=== PATIENT | male | born 1970 | race Caucasian/White ===

== ENCOUNTER → 2017-06-20 | Outpatient (CLI) | payer OTHER ==
[2017-06-20 11:00] LABS: CHOLESTEROL/HDL RATIO 5.1
== END | disposition home or self-care (01) ==
LOC: C.LAB 09:19
PROVIDERS: ATTEND Physician Assistant
DX: Z00.00 Encounter for general adult medical examination without abnormal findings (principal)

== ENCOUNTER 2021-11-30 17:28 | Observation (INO) ==
--- NOTE | 2021-11-30 18:09 | Emergency Department Note ---
History of Present Illness General Chief complaint: Shortness of Breath/Dyspnea Stated complaint: SOB, POST COVID 11/14 Time Seen by Provider: 11/30/21 17:46 Source: patient Mode of arrival: ambulatory Limitations: no limitations History of Present Illness This patient is a 50-year-old male who comes in after having shortness of breath. He started having symptoms with a head cold on November 13. He tested positive at home on the and a positive PCR on the . He started having shortness of breath on Monday the into Monday he felt very short of breath overnight and had impending doom at the time he saw his PCP on Monday the had a negative D-dimer and a normal chest x-ray they started him on a Z-Sherwin which she finished and he is also on a 9-day course of steroid taper which he is on day 8 of. He felt like he was having some sore throat and they started him on cefdinir yesterday which has had before without any problems and no rash he says his throat feels better he is. He says he feels like he just cannot get a deep breath. No pain with breathing denies chest pain. he has had some ongoing epigastric pain for a month that he has been on Protonix and Pepcid Pepcid that has been getting better. Denies any nausea or vomiting. No lower extremity pain or swelling. no rash. Home Medications Medication Instructions Recorded Confirmed Type cefdinir 300 mg capsule 300 mg PO BID 11/30/21 11/30/21 History etanercept 50 mg/mL (1 mL) 50 mg SUBCUT WK 11/30/21 11/30/21 History subcutaneous pen injector (Enbrel SureClick) pantoprazole 40 mg tablet,delayed 40 mg PO DAILY 11/30/21 11/30/21 History release prednisone 20 mg tablet 20 mg PO UD 11/30/21 11/30/21 History simvastatin 20 mg tablet 20 mg PO HS 11/30/21 11/30/21 History Allergies Allergy/AdvReac Type Severity Reaction Status Date / Time shellfish derived Allergy Severe Anaphylaxis Verified 11/30/21 17:47 Past Med/Surg History Social History Smoking Status: Never smoker Hx Alcohol Use: Yes Alcohol type: beer Hx Substance Use: No Preferred Language: Chadian Person Investigator Required: No Beliefs That Will Affect Care: None Current Living Situation: Family Feels Safe at Home: Yes Assistive Devices: None and Glasses Immunizations: Past medical historypsoriatic arthritis. Increased cholesterol. Denies history of cardiac disease, pulmonary disease, blood clotting disorder, diabetes. 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 Family historymother had valvular heart disease. Father did have an angioplasty. Social history he works here at the hospital. Does not smoke. He did receive both the Covid vaccine and booster Review of Systems A total of 10 systems reviewed and were otherwise negative Physical Exam Vital Signs Vital Signs - 24 hr 11/30/21 17:29 11/30/21 17:40 11/30/21 18:11 Temperature 36.8 C Temperature Source Temporal Artery Scan Oral Pulse Rate 87 Pulse Rate [Apical] Pulse Rate from SpO2 Sensor Pulse Rhythm Regular Respiratory Rate 28 H Respiratory Effort / Characteristics Short of Breath Short of Breath Respiratory Depth Deep Respiratory Pattern Regular Blood Pressure 196/114 H Blood Pressure [Right Arm] Blood Pressure Mean 141 Blood Pressure Mean [Right Arm] Pulse Oximetry 98 100 Oxygen Delivery Method Room Air Room Air Room Air Sepsis Recent Fever Within 48 Hours No Sepsis New/Unexplained Change in Mental Status No Sepsis Action Taken by Nursing No Action Required 11/30/21 19:09 11/30/21 20:00 Temperature Temperature Source Pulse Rate 75 Pulse Rate [Apical] 70 Pulse Rate from SpO2 Sensor 75 Pulse Rhythm Respiratory Rate 24 Respiratory Effort / Characteristics Respiratory Depth Respiratory Pattern Blood Pressure 172/103 H Blood Pressure [Right Arm] 160/119 H Blood Pressure Mean 126 Blood Pressure Mean [Right Arm] 132 Pulse Oximetry 99 100 Oxygen Delivery Method Room Air Room Air Sepsis Recent Fever Within 48 Hours Sepsis New/Unexplained Change in Mental Status Sepsis Action Taken by Nursing General: Well developed well nourished middle-age male who appears mildly t achypneic at times but otherwise in no acute distress, breathing comfortably on room air. Normal speech. On the pulse ox he is 100% HEENT: Normal cephalic atraumatic. Pupils are equal round and reactive to light. Extraocular movements are intact. Oropharynx is pink with moist mucous membranes. No swelling of the mouth lips or tongue. Neck: Supple with a midline trachea. No meningeal signs or stiffness, no JVD or bruits. No Stridor. Chest: Clear to auscultation bilaterally. No wheezes or rhonchi. No increased work of breathing. Heart: Regular rate and rhythm without murmurs or gallops. Abdomen: Soft nontender, nondistended without rebound guarding or rigidity. Extremities: No cyanosis clubbing or edema. No calf tenderness or assymetry Spine/Back. Non tender to palpation. No CVA tenderness Skin: Good turgor without rashes. Neurologic exam: Cranial nerves two through 12 are intact. Motor and sensation are intact and symmetrical throughout. Course Administered Medications Discontinued Medications Dexamethasone 6 mg/ Syringe 1.5 mls @ 1 mls/min IV ONE ONE Stop: 11/30/21 21:01 Last Admin: 11/30/21 21:17 Dose: 1 mls/min Documented by: [id number] Medical Decision Making Differential Diagnosis Covid, pneumonia, cardiac disease, PE, hypoxemia, infection, allergic reaction, post Covid complication, pneumothorax Medical Records Attestation: I reviewed the patient's medical records. Home Medications Current Medication List: was personally reviewed by me Laboratory Data Attestation: I reviewed the patient's lab results. Result diagrams: 11/30/21 18:05 11/30/21 18:05 Lab Results 11/30/21 11/30/21 11/30/21 Range/Units 18:05 18:05 18:05 WBC 10.22 (4.8-10.8) K/uL RBC 5.30 (4.7-6.1) M/uL Hgb 16.1 (14.0-18.0) g/dL Hct 46.8 (42-52) % MCV 88.3 (80-100) fL MCH 30.4 (25-34) pg MCHC 34.4 (32-36) g/dL RDW Std Deviation 41.8 (36.4-46.3) fL RDW Coeff of Sam 12.9 (11.5-14.5) % Plt Count 359 (130-400) K/uL MPV 10.6 H (7.4-10.4) fL Immature Gran % (Auto) 0.4 % Neut % (Auto) 72.8 % Lymph % (Auto) 20.3 % [place] % (Auto) 6.0 % Eos % (Auto) 0.3 % Baso % (Auto) 0.2 % Neut # (Auto) 7.45 H (1.4-6.5) K/uL Lymph # (Auto) 2.07 (1.2-3.4) K/uL [place] # (Auto) 0.61 H (0.11-0.59) K/uL Eos # (Auto) 0.03 (0-0.5) K/uL Baso # (Auto) 0.02 (0-0.2) K/uL Immature Gran # (Auto) 0.04 H (0.00-0.02) K/uL PT 9.4 (9.0-12.0) Seconds INR 0.9 (0.9-1.1) APTT 24.9 (21.0-31.0) Seconds PTT Ratio 0.9 D-Dimer Cancelled 230 Sodium (136-145) mmol/L Potassium (3.5-5.1) mmol/L Chloride (98-107) mmol/L Carbon Dioxide (21-32) mmol/L Anion Gap (3-11) BUN (6-23) mg/dl Creatinine (0.6-1.4) mg/dl Est Cr Clr Drug Dosing ml/min Est GFR ( Amer) ml/min Est GFR (Non-Af Amer) ml/min BUN/Creatinine Ratio (10-20) Glucose (70-99(Fasting)) mg/dl Calcium (8.5-10.1) mg/dl Total Bilirubin (0.2-1.0) mg/dl AST (13-39) U/L ALT (7-52) U/L Alkaline Phosphatase (34-104) U/L Troponin I (0-0.04) ng/ml B-Natriuretic Peptide (0-100) pg/ml Total Protein (6.0-8.3) gm/dl Albumin (3.4-5.0) gm/dl Globulin (2.5-4.0) gm/dl Albumin/Globulin Ratio (0.9-2) Lipase (11-82) U/L 11/30/21 11/30/21 Range/Units 18:05 18:32 WBC (4.8-10.8) K/uL RBC (4.7-6.1) M/uL Hgb (14.0-18.0) g/dL Hct (42-52) % MCV (80-100) fL MCH (25-34) pg MCHC (32-36) g/dL RDW Std Deviation (36.4-46.3) fL RDW Coeff of Sam (11.5-14.5) % Plt Count (130-400) K/uL MPV (7.4-10.4) fL Immature Gran % (Auto) % Neut % (Auto) % Lymph % (Auto) % [place] % (Auto) % Eos % (Auto) % Baso % (Auto) % Neut # (Auto) (1.4-6.5) K/uL Lymph # (Auto) (1.2-3.4) K/uL [place] # (Auto) (0.11-0.59) K/uL Eos # (Auto) (0-0.5) K/uL Baso # (Auto) (0-0.2) K/uL Immature Gran # (Auto) (0.00-0.02) K/uL PT (9.0-12.0) Seconds INR (0.9-1.1) APTT (21.0-31.0) Seconds PTT Ratio D-Dimer Sodium 137 (136-145) mmol/L Potassium 3.9 (3.5-5.1) mmol/L Chloride 104 (98-107) mmol/L Carbon Dioxide 21 (21-32) mmol/L Anion Gap 12 H (3-11) BUN 19 (6-23) mg/dl Creatinine 0.81 (0.6-1.4) mg/dl Est Cr Clr Drug Dosing 138.7 ml/min Est GFR ( Amer) 121.8 ml/min Est GFR (Non-Af Amer) 105.1 ml/min BUN/Creatinine Ratio 23.5 H (10-20) Glucose 89 (70-99(Fasting)) mg/dl Calcium 9.4 (8.5-10.1) mg/dl Total Bilirubin 0.7 (0.2-1.0) mg/dl AST 20 (13-39) U/L ALT 31 (7-52) U/L Alkaline Phosphatase 91 (34-104) U/L Troponin I < 0.03 (0-0.04) ng/ml B-Natriuretic Peptide 26 (0-100) pg/ml Total Protein 8.0 (6.0-8.3) gm/dl Albumin 4.4 (3.4-5.0) gm/dl Globulin 3.6 (2.5-4.0) gm/dl Albumin/Globulin Ratio 1.2 (0.9-2) Lipase 34 (11-82) U/L Imaging Data Attestation: I personally reviewed and interpreted this imaging study as follows: My Impression: Chest x-rayacute infiltrate, failure, pneumothorax seen CT of the cheststat radplease refer to the report. No focal consolidation or acute abnormality seen Radiologist's Impression: Chest X-Ray 11/30/21 18:01 SINGLE VIEW CHEST CLINICAL HISTORY: Atypical chest pain. FINDINGS: An AP, portable, upright chest radiograph is compared to study dated 10/28/2019. The cardiomediastinal silhouette is unremarkable. Nonspecific interstitial thickening is similar to previous. There is bibasilar scarring/atelectasis. No airspace consolidation or pleural effusion is identified. No pneumothorax is seen. The bony thorax is grossly intact. IMPRESSION: No acute cardiopulmonary abnormality. ACT 112: Negative or not required by law. Electronically signed by: Miguel A Rich M.D. 11/30/2021 6:50 PM ECG Data Attestation: I personally reviewed and interpreted this ECG as follows: Indication: + SOB/dyspnea Rate (beats per minute): 86 Rhythm: + normal sinus ECG Intervals/blocks: + Normal QRS, + Normal QT and + Normal [place] ECG [place]: + Normal ECG Findings: no PACs or no PVCs Comparison ECG Date: no prior available MDM Narrative This patient comes in as described above he does feel short of breath this is been ongoing since he was diagnosed with Covid besides looking mildly tachypneic he has stable vital signs is not hypoxemic his blood pressures actually elevated which may be from stress as well. EKG was obtained does not show any acute ischemic changes he was placed on a case monitor chest x-ray blood work was obtained including cardiac biomarkers and D-dimer. He was reassessed frequen tly. His chest x-ray is clear and does not show congestive heart failure pneumonia or pneumothorax. EKG does not suggest acute coronary syndrome or arrhythmia. D-dimer was within normal limits and therefore PE is highly unlikely. Troponin was also within normal limits which makes cardiac disease less likely. His blood pressure does remain elevated although is trending downward but I think that is more likely an effect rather than a cause but he may need further evaluation for that. I did consult Dr. Regalado to see the patient in the emergency department he is going to admit him. We did discuss this and order a noncontrast CT to evaluate for possible pneumonia and other pulmonary pathology. He will be admitted for further treatment and evaluation Continuous cardiac monitoring: Orders placed in EMR for continuous case monitor. [place] interpretation patient with known to be a normal sinus rhythm rate of 85 Impression & Plan SOB (shortness of breath), History of COVID-19 Discharge Plan Visit Data Chief Complaint: Shortness of Breath/Dyspnea Stated Complaint: SOB, POST COVID 11/14 ED Provider: Cristofer Peacock Discharge Problem: SOB (shortness of breath), History of COVID-19 Patient Disposition: Admitted As Inpatient Discharge Instructions Interventions: ED Discharge Assessment Last Done: 11/30/21 21:19
[2021-11-30 18:18] LABS: Basophils # (auto) 0.02 K/uL (0-0.2); Basophils % (auto) 0.2 %; Eosinophils # (auto) 0.03 K/uL (0-0.5); Eosinophils % (auto) 0.3 %; Hematocrit (blood only) 46.8 % (42-52); Hemoglobin 16.1 g/dL (14.0-18.0); Immature Granulocytes # (auto) 0.04 K/uL (0.00-0.02); Immature Granulocytes % (auto) 0.4 %; Lymphocytes # (auto) 2.07 K/uL (1.2-3.4); Lymphocytes % (auto) 20.3 %; Mean Corpuscular Hemoglobin 30.4 pg (25-34); Mean Corpuscular Hgb Conc 34.4 g/dL (32-36); Mean Corpuscular Volume 88.3 fL (80-100); Mean Platelet Volume 10.6 fL (7.4-10.4); Monocytes # (auto) 0.61 K/uL (0.11-0.59); Neutrophils # (auto) 7.45 K/uL (1.4-6.5); Neutrophils % (auto) 72.8 %; Platelet Count 359 K/uL (130-400); RDW Coefficient of Variation 12.9 % (11.5-14.5); RDW Standard Deviation 41.8 fL (36.4-46.3); White Blood Count 10.22 K/uL (4.8-10.8)
[2021-11-30 18:29] LABS: D Dimer 230 ug/L FEU (0-500); INR 0.9 (0.9-1.1); Partial Thromboplastin Ratio 0.9; Partial Thromboplastin Time 24.9 Seconds (21.0-31.0); Prothrombin Time 9.4 Seconds (9.0-12.0)
[2021-11-30 18:40] LABS: Alanine Aminotransferase 31 U/L (7-52); Albumin Globulin Ratio 1.2 (0.9-2); Albumin Level 4.4 gm/dl (3.4-5.0); Alkaline Phosphatase 91 U/L (34-104); Anion Gap 12 (3-11); Aspartate Aminotransferase 20 U/L (13-39); BUN Creatinine Ratio 23.5 (10-20); Bilirubin,Total 0.7 mg/dl (0.2-1.0); Blood Urea Nitrogen 19 mg/dl (6-23); Calcium 9.4 mg/dl (8.5-10.1); Carbon Dioxide 21 mmol/L (21-32); Chloride 104 mmol/L (98-107); Creatinine Clr Calc Pharmacy 138.7 ml/min; Est GFR (African American) 121.8 ml/min; Est GFR (Non-African American) 105.1 ml/min; Globulin 3.6 gm/dl (2.5-4.0); Glucose 89 mg/dl (70-99(Fasting)); Lipase 34 U/L (11-82); Potassium 3.9 mmol/L (3.5-5.1); Sodium 137 mmol/L (136-145)
--- NOTE | 2021-11-30 18:51 | XRay Report ---
SINGLE VIEW CHEST CLINICAL HISTORY: Atypical chest pain. FINDINGS: An AP, portable, upright chest radiograph is compared to study dated 10/28/2019. The cardio mediastinal silhouette is unremarkable. Nonspecific interstitial thickening is similar to previous. T here is bibasilar scarring/atelectasis. No airspace consolidation or pleural effusion is identified. No pneumothorax is seen. The bony thorax is grossly intact. IMPRESSION: No acute cardiopulmonary abnormality. ACT 112: Negative or not required by law. Electronically signed by: Miguel A Rich M.D. 11/30/2021 6:50 PM
[2021-11-30 19:38] LABS: Troponin I < 0.03 ng/ml (0-0.04)
--- NOTE | 2021-11-30 20:25 | History & Physical Report ---
Date of Service November 30, 2021 Assessment & Plan (1) SOB (shortness of breath): Plan: Shortness of breath/dyspnea on exertion- The patient will be admitted to telemetry for serial cardiac enzymes, serial EKG's, cardiac rhythm monitoring and a 2-D echocardiogram with Dopplers. Differential includes post COVID-19 inflammatory response associated with immunocompromised state, coronary ischemia, bronchospasm of other cause, other (2) History of COVID-19: Plan: Suspect shortness of breath is least in part related to postinflammatory process associated with COVID-19 infection, exacerbated by immunocompromised state of Enbrel Dexamethasone 6 mg IV now and every morning Albuterol HFA 2 puffs every 2 hours as needed Vitamin D3 5000 international units p.o. every morning Zinc sulfate 2020 mg p.o. 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 He initially developed head congestion on 11/13, had COVID-19 testing performed on 118, and which was reported positive on 11/17. On 11/20, he was placed on a Z-Sherwin and prednisone taper by his outpatient physician office. He recently had the addition of cefdinir, and continuing prednisone taper. However, since he has gotten down to 20 mg of prednisone, from his original taper of 60 to 40 mg, he has developed difficulty taking a deep breath, shortness of breath and dyspnea on exertion. CBC that with differential, chemistry profile, troponin and D-dimer essentially normal in ED Chest x-ray and CT chest without contrast showed no acute findings Allergies Allergy/AdvReac Type Severity Reaction Status Date / Time shellfish derived Allergy Severe Anaphylaxis Verified 11/30/21 17:47 Home Medications Medication Instructions Recorded Confirmed Type cefdinir 300 mg capsule 300 mg PO BID 11/30/21 11/30/21 History etanercept 50 mg/mL (1 mL) 50 mg SUBCUT WK 11/30/21 11/30/21 History subcutaneous pen injector (Enbrel SureClick) pantoprazole 40 mg tablet,delayed 40 mg PO DAILY 11/30/21 11/30/21 History release prednisone 20 mg tablet 20 mg PO UD 11/30/21 11/30/21 History simvastatin 20 mg tablet 20 mg PO HS 11/30/21 11/30/21 History Past Med/Surg History Medical History (Updated 11/30/21 @ 23:04 by Jayesh Dorsey MD) Acquired immunocompromised state GERD (gastroesophageal reflux disease) Hyperlipidemia Psoriatic arthritis Social History Smoking Status: Never smoker Hx Alcohol Use: Yes Alcohol type: beer Hx Substance Use: No Preferred Language: Nauruan Shop Teacher Required: No Beliefs That Will Affect Care: None Current Living Situation: Family Feels Safe at Home: Yes Assistive Devices: None and Glasses Review of Systems Review of Systems: The patient denies chest pain, palpitations, cough, lower extremity swelling, sore throat, fevers, chills, sweats, nausea, vomiting, diarrhea , constipation, abdominal pain, pelvic pain, blood in urine or stool, dysuria, urinary frequency or urgency, lightheadedness, dizziness, memory loss, loss of consciousness, rash, abnormal bruising or bleeding, imbalance, focal or generalized weakness, numbness or tingling in arms or legs, generalized arthralgias or myalgias, back or neck pain, or night sweats. The review of systems is otherwise negative other than for that already noted above, and at least 10 systems have been reviewed. Physical Exam Physical Exam: The patient is awake, alert and oriented 3, well developed and well nourished, normocephalic and atraumatic, lying in bed and in no acute distress. HEENT--PERRL, EOMI, mucous membranes and oropharynx normal. Neck--supple. No JVD. No bruits. Thyroid normal, trachea midline, no a denopathy. Heart--normal S1 and S2. No murmurs, rubs or gallops. Lungs--clear bilaterally, no respiratory distress, no accessory muscle use. Abdomen--normal bowel sounds and soft. Nontender. Nondistended, no hernias or masses, no organomegaly. Extremities--no cyanosis or clubbing. No edema. Dermatologic--normal skin turgor, normal color, no abnormal lymph nodes, no rash. Neurologic--cranial nerves II through XII grossly intact. Rheumatologic--normal range of motion. Psychiatric--normal affect. Results & Data Results & Data ([facility]) Vital Signs (Past 12 Hours) Vital Signs Temp Pulse Pulse Resp BP BP Pulse Ox 11/30/21 20:00 75 172/103 H 100 11/30/21 19:09 70 24 160/119 H 99 11/30/21 17:40 100 11/30/21 17:29 36.8 C 87 28 H 196/114 H 98 Laboratory Results Laboratory Results WBC 10.22 K/uL (4.8-10.8) 11/30/21 18:05 RBC 5.30 M/uL (4.7-6.1) 11/30/21 18:05 Hgb 16.1 g/dL (14.0-18.0) 11/30/21 18:05 Hct 46.8 % (42-52) 11/30/21 18:05 MCV 88.3 fL (80-100) 11/30/21 18:05 MCH 30.4 pg (25-34) 11/30/21 18:05 MCHC 34.4 g/dL (32-36) 11/30/21 18:05 RDW Std Deviation 41.8 fL (36.4-46.3) 11/30/21 18:05 RDW Coeff of Sam 12.9 % (11.5-14.5) 11/30/21 18:05 Plt Count 359 K/uL (130-400) 11/30/21 18:05 MPV 10.6 fL (7.4-10.4) H 11/30/21 18:05 Immature Gran % (Auto) 0.4 % 11/30/21 18:05 Neut % (Auto) 72.8 % 11/30/21 18:05 Lymph % (Auto) 20.3 % 11/30/21 18:05 [place] % (Auto) 6.0 % 11/30/21 18:05 Eos % (Auto) 0.3 % 11/30/21 18:05 Baso % (Auto) 0.2 % 11/30/21 18:05 Neut # (Auto) 7.45 K/uL (1.4-6.5) H 11/30/21 18:05 Lymph # (Auto) 2.07 K/uL (1.2-3.4) 11/30/21 18:05 [place] # (Auto) 0.61 K/uL (0.11-0.59) H 11/30/21 18:05 Eos # (Auto) 0.03 K/uL (0-0.5) 11/30/21 18:05 Baso # (Auto) 0.02 K/uL (0-0.2) 11/30/21 18:05 Immature Gran # (Auto) 0.04 K/uL (0.00-0.02) H 11/30/21 18:05 PT 9.4 Seconds (9.0-12.0) 11/30/21 18:05 INR 0.9 (0.9-1.1) 11/30/21 18:05 APTT 24.9 Seconds (21.0-31.0) 11/30/21 18:05 PTT Ratio 0.9 11/30/21 18:05 D-Dimer 230 ug/L FEU (0-500) 11/30/21 18:05 D-Dimer Cancelled 11/30/21 18:05 Sodium 137 mmol/L (136-145) 11/30/21 18:05 Potassium 3.9 mmol/L (3.5-5.1) 11/30/21 18:05 Chloride 104 mmol/L (98-107) 11/30/21 18:05 Carbon Dioxide 21 mmol/L (21-32) 11/30/21 18:05 Anion Gap 12 (3-11) H 11/30/21 18:05 BUN 19 mg/dl (6-23) 11/30/21 18:05 Creatinine 0.81 mg/dl (0.6-1.4) 11/30/21 18:05 Est Cr Clr Drug Dosing 138.7 ml/min 11/30/21 18:05 Est GFR ( Amer) 121.8 ml/min 11/30/21 18:05 Est GFR (Non-Af Amer) 105.1 ml/min 11/30/21 18:05 BUN/Creatinine Ratio 23.5 (10-20) H 11/30/21 18:05 Glucose 89 mg/dl (70-99(Fasting)) 11/30/21 18:05 Calcium 9.4 mg/dl (8.5-10.1) 11/30/21 18:05 Total Bilirubin 0.7 mg/dl (0.2-1.0) 11/30/21 18:05 AST 20 U/L (13-39) 11/30/21 18:05 ALT 31 U/L (7-52) 11/30/21 18:05 Alkaline Phosphatase 91 U/L (34-104) 11/30/21 18:05 Troponin I < 0.03 ng/ml (0-0.04) 11/30/21 18:05 B-Natriuretic Peptide 26 pg/ml (0-100) 11/30/21 18:32 Total Protein 8.0 gm/dl (6.0-8.3) 11/30/21 18:05 Albumin 4.4 gm/dl (3.4-5.0) 11/30/21 18:05 Globulin 3.6 gm/dl (2.5-4.0) 11/30/21 18:05 Albumin/Globulin Ratio 1.2 (0.9-2) 11/30/21 18:05 Lipase 34 U/L (11-82) 11/30/21 18:05 Impressions Chest X-Ray 11/30/21 18:01 SINGLE VIEW CHEST CLINICAL HISTORY: Atypical chest pain. FINDINGS: An AP, portable, upright chest radiograph is compared to study dated 10/28/2019. The cardiomediastinal silhouette is unremarkable. Nonspecific interstitial thickening is similar to previous. There is bibasilar scarring/atelectasis. No airspace consolidation or pleural effusion is identified. No pneumothorax is seen. The bony thorax is grossly intact. IMPRESSION: No acute cardiopulmonary abnormality. ACT 112: Negative or not required by law. Electronically signed by: Miguel A Rich M.D. 11/30/2021 6:50 PM Diagnostic Findings [facility] Patient: LINK WILKINS (Male) : 74 Status: ER Date: 11/30/21 21:15 Room #: History: sowmya ken hx Slices: [phone] Priors: Solo: Brigida Vincent @ [phone] Exams: CT CHEST Without Contrast Contrast: Accession Numbers: [id number] Referring Physician: JATINDER PEDRAZA Preliminary Findings Only See Final Report For Complete Findings CT CHEST Without Contrast: Impression: No focal consolidation or other acute abnormality in the chest on noncontrast exam. Degenerative changes of the spine. Radiologist: Juan Ramon Jiang MD Study ready at 21:20 and initial results transmitted at 21:28 *This report constitutes a preliminary interpretation only. Non-acute findings felt to be unrelated to the clinical presentation may not be discussed in this report. The study will be interpreted and a final report will be generated by the local Radiologist the following shift. To reach the [facility] radiology department call [phone]. If a discrepancy is found between the preliminary and final interpretations of this study, please notify us via our Client Portal at [email or web address], under QA Exams. You can also fax this report with a description of the discrepancy, or include the final report, to our daytime fax number [phone]. If faxing, please indicate the severity of discrepancy using one of the following categories: [ ] 1 - Agree/Informational [ ] 2 - Unlikely to Affect Management [ ] 3 - Possible Eventual Change of Management [ ] 4 - Probable Immediate Change of Management For all other patient related information, please fax us at [phone]. [id number] Code Status & VTE Plan Code Status Full code VTE Prophylaxis Plan VTE Prophylaxis will be ordered: Yes PG Care Time/CCT Total # of Minutes Spent Total Time Spent with Patient: Total time spent is greater than 50% in coordination of care (as documented) at patient's floor/unit and/or counseling patient: Coding Level of Care Code INT OBSERVATION CARE 70M LVL 3 Diagnoses SOB (shortness of breath) R06.02 History of COVID-19 Z86.16 Hyperlipidemia E78.5 GERD (gastroesophageal reflux disease) K21.9 Psoriatic arthritis L40.50 Acquired immunocompromised state D84.9
[2021-11-30] MEDS ORDERED: dexAMETHasone 6 MG in SYRINGE 0 ML IV ONE (21:00)
[2021-11-30] MEDS ORDERED: ACETAMINOPHEN 325 MG TAB PO PRN (21:36)
[2021-11-30] MEDS ORDERED: ONDANSETRON INJ 2 MG/ML 2 ML VIAL IV PRN (21:36)
[2021-11-30] MEDS ORDERED: SIMVASTATIN 20 MG TAB PO SCH (21:36)
[2021-11-30] MEDS ORDERED: ALBUTEROL HFA 8 GM INHALER INH PRN (23:07)
--- NOTE | 2021-12-01 07:36 | CT Scan Report ---
CT chest diagnostic wo con CT DOSE: 822.18 mGy.cm HISTORY: shortness of breath TECHNIQUE: Multiaxial CT images of the chest were performed without contrast. A dose lowering techni que was utilized adhering to the principles of ALARA. COMPARISON: None. FINDINGS: There is mild respiratory motion artifact at the lung bases. The central airways are patent . The punctate calcified granuloma within the right upper lobe. There is also a punctate calcified gr anuloma within the left lung apex. No pneumothorax. No pleural effusions. No focal lung consolidation s to suggest pneumonia. No suspicious pulmonary nodules. Mild degenerative changes within the thoraci c spine. No suspicious lytic or blastic osseous lesions. The heart is normal in size. No pericardial effusion. The unenhanced thyroid gland appears unremarkable. No mediastinal or hilar lymphadenopathy. Normal caliber thoracic aorta. Normal esophagus. Limited views of the upper abdomen demonstrate a no rmal liver, spleen, and adrenal glands. IMPRESSION: 1. No acute process within the chest. 2. No focal lung consolidations to suggest pneumonia. ACT 112: Negative or not required by law. Electronically signed by: Rainer Jang M.D. 12/01/2021 7:35 AM
[2021-12-01 07:50] LABS: Hematocrit (blood only) 45.1 % (42-52); Hemoglobin 15.4 g/dL (14.0-18.0); Immature Granulocytes # (auto) 0.03 K/uL (0.00-0.02); Immature Granulocytes % (auto) 0.4 %; Lymphocytes # (auto) 1.14 K/uL (1.2-3.4); Lymphocytes % (auto) 13.7 %; Mean Corpuscular Hemoglobin 30.2 pg (25-34); Mean Corpuscular Hgb Conc 34.1 g/dL (32-36); Mean Corpuscular Volume 88.4 fL (80-100); Mean Platelet Volume 10.8 fL (7.4-10.4); Monocytes # (auto) 0.46 K/uL (0.11-0.59); Monocytes % (auto) 5.5 %; Neutrophils # (auto) 6.67 K/uL (1.4-6.5); Neutrophils % (auto) 80.4 %; Platelet Count 337 K/uL (130-400); RDW Coefficient of Variation 12.9 % (11.5-14.5); RDW Standard Deviation 41.9 fL (36.4-46.3)
[2021-12-01 08:18] LABS: Albumin Globulin Ratio 1.2 (0.9-2); Albumin Level 4.1 gm/dl (3.4-5.0); BUN Creatinine Ratio 21.3 (10-20); Bilirubin,Total 0.6 mg/dl (0.2-1.0); Est GFR (African American) 125.7 ml/min; Est GFR (Non-African American) 108.5 ml/min; Globulin 3.3 gm/dl (2.5-4.0); Total Protein 7.4 gm/dl (6.0-8.3)
--- NOTE | 2021-12-01 08:59 | XCELERA ---
[id number]
[2021-12-01] MEDS ORDERED: CHOLECALCIFEROL 5,000 UNITS 125 MCG TAB PO SCH (09:00)
[2021-12-01] MEDS ORDERED: ZINC SULFATE 220 MG CAPSULE PO SCH (09:00)
[2021-12-01] MEDS ORDERED: dexAMETHasone 6 MG in SYRINGE 0 ML IV SCH (09:00)
[2021-12-01] MEDS ORDERED: PANTOprazole 40 MG TAB PO SCH (09:00)
--- NOTE | 2021-12-01 11:23 | Electrocardiogram Report ---
Test Reason : Blood Pressure : / mmHG Vent. Rate : 086 BPM Atrial Rate : 086 BPM P-R Int : 126 ms QRS Dur : 090 ms QT Int : 368 ms P-R-T Axes : 011 -06 -03 degrees QTc Int : 440 ms Poor data quality, interpretation may be adversely affected Normal sinus rhythm Normal ECG No previous ECGs available Confirmed by Shiraz Goodwin ([id number]) on 12/01/2021 11:23:33 AM Referred By: Amor Pedraza Confirmed By:Shiraz Goodwin
--- NOTE | 2021-12-01 11:40 | Electrocardiogram Report ---
Test Reason : Blood Pressure : / mmHG Vent. Rate : 074 BPM Atrial Rate : 074 BPM P-R Int : 132 ms QRS Dur : 092 ms QT Int : 394 ms P-R-T Axes : 021 -03 -01 degrees QTc Int : 437 ms Normal sinus rhythm Inferior-posterior infarct , age undetermined Abnormal ECG When compared with ECG of 30-NOV-2021 17:40, (unconfirmed) No significant change was found Confirmed by Shiraz Goodwin ([id number]) on 12/01/2021 11:40:10 AM Referred By: Amor Pedraza Confirmed By:Shiraz Goodwin
--- NOTE | 2021-12-01 12:36 | Discharge Summary ---
Date of Service December 01, 2021 Admission HPI Per Admitting Provider The patient is a 50-year-old male with a past medical history including psoriatic arthritis, GERD, hyperlipidemia and mild obesity. He initially developed head congestion on 11/13, had COVID-19 testing performed on 118, and which was reported positive on 11/17. On 11/20, he was placed on a Z-Sherwin and prednisone taper by his outpatient physician office. He recently had the addition of cefdinir, and continuing prednisone taper. However, since he has gotten down to 20 mg of prednisone, from his original taper of 60 to 40 mg, he has developed difficulty taking a deep breath, shortness of breath and dyspnea on exertion. CBC that with differential, chemistry profile, troponin and D-dimer essentially normal in ED Chest x-ray and CT chest without contrast showed no acute findings Principal Diagnosis Dyspnea without hypoxia Recent COVID 19 infection Discharge Exam General: well developed, overweight male, no acute distress, comfortable Neck: supple, trachea midline, normal thyroid Lungs: clear to auscultation bilaterally, normal respiratory effort, no accessory muscle use, no distress Heart: regular S1 and S2, no murmur, peripheral pulses normal, capillary refill normal, no edema Abdomen: soft, NT, ND, + BS, no hepatomegaly, normal to percussion Extremities: normal in appearance, no cyanosis, no petechiae, strength is 5/5 bilaterally Neuro: awake, cooperative, moves all extremities, no focal motor deficits, CN II-XII intact, sensation in extremities intact, normal speech Skin: warm, dry, no rash, normal turgor Psych: Awake, alert oriented x 3, euthymic affect Discharge Data Allergies Allergy/AdvReac Type Severity Reaction Status Date / Time shellfish derived Allergy Severe Anaphylaxis Verified 11/30/21 17:47 Consultations 11/30/21 19:40 ED Decision to Admit Stat Ordered Studies 11/30/21 20:35 CT chest diagnostic wo con Urgent Hospital Course (1) SOB (shortness of breath): Shortness of breath/dyspnea on exertion- CTA chest with no evidence of PE, no infiltrates to suggest pneumonia Echocardiogram normal EF and no signs of heart failure no anemia no wheezing to suggest asthma or bronchitis could be a component of anxiety feels better after dexamethasone ESR slightly elevated no signs of MIS-A will send home on a few more days of dexamethasone take off a few days from work if dyspnea continues to be an issue then he can follow up with pulmonology for PFT (2) History of COVID-19: Dexamethasone 6 mg IV on admission, good response, felt a lot better continue for a few more days (3) Hyperlipidemia: Continue simvastatin (4) GERD (gastroesophageal reflux disease): Continue pantoprazole (5) Psoriatic arthritis: He has missed 2 doses of Enbrel due to being held due to COVID-19 infection If work-up otherwise negative, would resume Enbrel after talking with his healthcare translator Dr. Hester in [place] (6) Acquired immunocompromised state: Total Time Total Time Spent Total Time Spent (In Minutes): 33 minutes Discharge Plan Discharge Items Patient Disposition: Home - Self-Care Reason For Visit: CHEST PAIN Discharge Diagnosis: dyspnea residual inflammation from COVID infection Condition on Discharge: Good Goals: complete short course of dexamethasone get rest, stay well nourished and well hydrated Activity: Per Instructions section Exercise/Sports: Gradually increase as tolerated Driving/Machine Use: No limitations Weightbearing: Full weightbearing Non-emergency contact: Primary Care Provider Call non-emergency contact if: you have any medication questions Follow-up/Referrals: Sonny Pedraza PA-C [Primary Care Provider] - (one week) Diet: Regular Addtl Attending Provider Instructions: Medications: - DEXAMETHASONE: 6mg daily for 5 more days to treat residual inflammation dyspnea, recent COVID infection CTA chest shows no evidence of pulmonary embolism, no evidence of viral pneumonia, no pleural effusions, no bacterial pneumonia echocardiogram shows normal EF and BNP was normal >95% on room air entire time thus it is only dyspnea and not hypoxia ESR (sed rate) is elevated at 22, thus you have some inflammation no concern that this is MIS-A (multisystem inflammatory syndrome in adult) as you don't have any of the symptoms take dexamethasone get rest, stay well nourished and well hydrated focus on taking deep breaths and holding them, use incentive spirometer once an hour could try medication for anxiety if dyspnea continues, see if it helps symptoms if dyspnea persists, then would recommend outpatient pulmonary referral suspect that it will resolve in next week or so follow up with healthcare translator about timing to resume Enbrel Pending Studies at Discharge: No Stand-Alone Forms: My [facility] [employer], Work/School Release, Smoking Cessation Medications and DC Order Prescriptions: Continued simvastatin 20 mg Tablet 20 mg PO HS RF: 0 Enbrel SureClick 50 mg/mL (1 mL) Pen Injector 50 mg SUBCUT WK RF: 0 pantoprazole 40 mg tablet,delayed release (DR/EC) 40 mg PO DAILY RF: 0 Discontinued prednisone 20 mg tablet 20 mg PO UD RF: 0 cefdinir 300 mg capsule 300 mg PO BID RF: 0 Discharge Orders: Discharge Order (Routine); Ordered 12/01/21 Ordered By: Cr Faye Admission Data Admit Date/Time: 11/30/21 20:23 Attending Provider: Cr Faye Admit Provider: Jayesh Dorsey Primary Care Provider: Sonny Pedraza Other Providers: Jayesh Dorsey Other Interventions: Discharge Summary Assessment (RN) Last Done: 12/01/21 12:38 Coding Level of Care Code D/C DAY MANAGEMENT >30 MINS Diagnoses SOB (shortness of breath) R06.02 History of COVID-19 Z86.16 Hyperlipidemia E78.5 GERD (gastroesophageal reflux disease) K21.9 Psoriatic arthritis L40.50 Acquired immunocompromised state D84.9
== END 2021-12-01 13:28 | disposition home or self-care (01) ==
LOC: ED 17:28 → 2S 17:28 → SUATTDRO 20:23 → 2S 21:19